=== PATIENT | female | born 1990 | race Two or more races ===

== ENCOUNTER 2021-06-13 11:04 | Emergency (ER) | payer OTHER ==
[~2021-06-13] VITALS: Ht 154.9 cm; Wt 58.1 kg
[2021-06-13 11:37] VITALS: BP 121/70
--- NOTE | 2021-06-13 11:40 | NUR ---
BIBS FOR C/O BLOOD NOTED IN RIGHT SIDE OF LABIA THIS MORNING AND SWELLING. RATES PAIN 5/10. WILL CONTINUE TO MONITOR THE PATIENT.
--- NOTE | 2021-06-13 13:29 | NUR ---
Patient discharged to home in stable condition. Written and verbal after care instructions given. Patient verbalizes understanding of instruction.
== END 2021-06-13 13:30 | disposition home or self-care (01) ==
LOC: ER 11:08
DX: N75.0 Cyst of Bartholin's gland (principal)